=== PATIENT | male | born 1980 | race Hispanic/Latino ===

== ENCOUNTER 2020-10-18 20:43 | Emergency (ER) | payer OTHER ==
[~2020-10-18] VITALS: Ht 177.8 cm; Wt 99.8 kg
[2020-10-18] MEDS ORDERED: TETRACAINE HCL 0.5% OPTH SOLN 4 ML BTL OP ONE (21:00)
[2020-10-18] MEDS ORDERED: FLUORESCEIN SOD(OPTH) 1 MG STRP OP ONE (21:00)
[2020-10-18] MEDS ORDERED: EYE IRRIGATION (OPTH) 120 ML BTL OP ONE (21:00)
[2020-10-18] MEDS ORDERED: FLUORESCEIN SOD(OPTH) 1 MG STRP ONE (21:03)
[2020-10-18] MEDS ORDERED: EYE IRRIGATION (OPTH) 120 ML BTL ONE (21:03)
[2020-10-18] MEDS ORDERED: TOBRAMYCIN 0.3% OPTH OINT 3.5 GM TUBE OP ONE (22:30)
[2020-10-18] MEDS ORDERED: ULTRAM50 MG PO (22:32)
== END 2020-10-18 22:50 | disposition home or self-care (01) ==
LOC: ER 20:54
DX: S05.02XA Injury of conjunctiva and corneal abrasion without foreign body, left eye, initial encounter (principal); W31.2XXA Contact with powered woodworking and forming machines, initial encounter; Y93.9 Activity, unspecified; Y92.9 Unspecified place or not applicable
CPT/HCPCS: 99283